=== PATIENT | male | born 1960 | race American Indian/Alaskan Native ===

== ENCOUNTER 2018-04-10 04:40 | Emergency (ER) | payer OTHER, SELFPAY ==
[2018-04-10] MEDS ORDERED: MOTRIN PO ONE (05:15)
--- NOTE | 2018-04-10 06:24 | XRay Report ---
FINAL REPORT PROCEDURE: XR RIBS UNILAT 2V RT TECHNIQUE: Unilateral rib radiographs, 2 views of the RIGHT ribs. HISTORY: right rib pain COMPARISON: No prior studies are available for comparison. FINDINGS: Lungs: There is atelectasis at the right lung base. There is no pulmonary contusion, effusion or pneumothorax. Pleural space: Normal. Pneumothorax: None. Bony thorax/ribs: There is a fracture of right rib number 8. There are incidental bilateral cervical ribs. IMPRESSION: Fracture of right rib 8.
[2018-04-10] MEDS ORDERED: MORPHINE IV ONE (06:35)
[2018-04-10] MEDS ORDERED: NACL 0.9% 1000 ML 1,000 ML IV ONE (06:35)
[2018-04-10] MEDS ORDERED: ZOFRAN IV ONE (06:35)
--- NOTE | 2018-04-10 06:40 | Emergency Department Report ---
ED Fall HPI - General Chief Complaint: Fall Stated Complaint: FALL; RT FLANK PAIN Time Seen by Provider: 04/10/18 06:30 Source: patient Mode of arrival: Ambulatory - History of Present Illness Initial Comments: Patient is 58 years old male with history of hypertension, COPD and alcoholism. Patient stated that he was trying to get out of his bathtub when he slipped and fell on his right chest. Patient presented to the ER complaining of right sided chest pain. Patient denied any shortness of breath but stated that pain increase when he take a deep breath. Initial oxygen saturation was 84%. MD Complaint: fall -: Sudden, Last night Fall From: standing When Fall Occurred: just prior to arrival Fall Witnessed: yes, by family Place Fall Occurred: home Loss of Consciousness: none Prolonged Down Time?: no Symptoms Prior to Fall: none Location: chest Severity scale (0 -10): 8 Context: tripped/slipped Associated Symptoms: denies - Related Data Previous Rx's Medication Instructions Recorded Last Taken Type ALBUTEROL Inhaler (OR & NICU) 2 puff IH QID PRN #1 inhalation 10/26/14 Unknown Rx [ProAir HFA Inhaler] Aspirin [Aspirin BABY CHEW TAB] 81 mg PO QDAY #30 tab.chew 10/26/14 Unknown Rx Lansoprazole Solutab [Prevacid 30 mg PO QDAY #30 tab.rapdis 10/26/14 Unknown Rx Solutab] Multivit, Iron, Min #4, FA 1 each PO DAILY #30 tab.chew 10/26/14 Unknown Rx [Multichew Chewable Tablet] Nicotine [Habitrol] 21 mg TD DAILY #30 patch 10/26/14 Unknown Rx Allergies Allergy/AdvReac Type Severity Reaction Status Date / Time No Known Allergies Allergy Unverified 10/25/14 11:06 ED Review of Systems ROS: Stated complaint: FALL; RT FLANK PAIN Other details as noted in HPI Comment: All other systems reviewed and negative Constitutional: denies: chills, fever ENT: denies: epistaxis Respiratory: shortness of breath. denies: cough, orthopnea, SOB with exertion, SOB at rest, wheezing Cardiovascular: chest pain. denies: palpitations Gastrointestinal: denies: abdominal pain, nausea, vomiting, diarrhea, constipation, hematemesis, melena, hematochezia Musculoskeletal: denies: back pain Neurological: denies: headache, weakness, numbness, paresthesias, confusion, abnormal gait ED Past Medical Hx - Past Medical History Hx Hypertension: Yes Hx COPD: Yes Additional medical history: BPH - Surgical History Past Surgical History?: No - Social History Smoking Status: Current Every Day Smoker Substance Use Type: Alcohol - Medications Home Medications: Home Medications Medication Instructions Recorded Confirmed Last Taken Type ALBUTEROL Inhaler (OR & NICU) 2 puff IH QID PRN #1 inhalation 10/26/14 Unknown Rx [ProAir HFA Inhaler] Aspirin [Aspirin BABY CHEW TAB] 81 mg PO QDAY #30 tab.chew 10/26/14 Unknown Rx Lansoprazole Solutab [Prevacid 30 mg PO QDAY #30 tab.rapdis 10/26/14 Unknown Rx Solutab] Multivit, Iron, Min #4, FA 1 each PO DAILY #30 tab.chew 10/26/14 Unknown Rx [Multichew Chewable Tablet] Nicotine [Habitrol] 21 mg TD DAILY #30 patch 10/26/14 Unknown Rx ED Physical Exam - General Limitations: No Limitations General appearance: alert, in distress (moderate distress secondary to pain) - Head Head exam: Present: atraumatic, normocephalic, normal inspection - Eye Eye exam: Present: normal appearance, PERRL, EOMI - ENT ENT exam: Present: normal exam, normal orophraynx, mucous membranes moist - Neck Neck exam: Present: normal inspection, full ROM. Absent: tenderness, meningismus, lymphadenopathy, thyromegaly - Respiratory Respiratory exam: Present: normal lung sounds bilaterally, chest wall tenderness. Absent: respiratory distress, wheezes, rales, rhonchi, stridor, accessory muscle use, decreased breath sounds, prolonged expiratory - Cardiovascular Cardiovascular Exam: Present: regular rate, normal rhythm, normal heart sounds - GI/Abdominal GI/Abdominal exam: Present: soft, normal bowel sounds. Absent: distended, tenderness, guarding, rebound, rigid, organomegaly, mass, bruit, pulsatile mass , hernia - Extremities Exam Extremities exam: Present: normal inspection, full ROM, normal capillary refill - Back Exam Back exam: Present: normal inspection, full ROM. Absent: tenderness, CVA tenderness (R), CVA tenderness (L), muscle spasm, paraspinal tenderness, vertebral tenderness, rash noted - Neurological Exam Neurological exam: Present: alert, oriented X3, CN II-XII intact, normal gait, reflexes normal - Skin Skin exam: Present: warm, intact, normal color ED Course Vital Signs 04/10/18 04/10/18 04/10/18 04:57 05:57 06:24 Temperature 98 F 98.1 F Pulse Rate 65 70 Respiratory 20 20 20 Rate Blood Pressure 92/54 Blood Pressure 118/81 [Left] O2 Sat by Pulse 100 92 Oximetry 04/10/18 04/10/18 04/10/18 06:52 06:57 07:22 Temperature Pulse Rate Respiratory 20 16 16 Rate Blood Pressure Blood Pressure [Left] O2 Sat by Pulse Oximetry - Reevaluation(s) Reevaluation #1: 04/10/18 09:18 Patient stated that he is feeling much better. He is eating his breakfast in no acute distress. ED Medical Decision Making - Lab Data Result diagrams: 04/10/18 06:13 04/10/18 06:13 - Radiology Data Radiology results: report reviewed Referring Physician: DEA LARIOS Patient Name: ISAURA SALEH Date of : 1960 Sex: Male Report Date: 2018-04-10 Report Status: Finalized Findings [facility] [address] [place] [address] Cat Scan Report Signed Patient: ISAURA SALEH MR#: [id number] : 1960 Acct:[id number] Age/Sex: 58 / M ADM Date: 04/10/18 Loc: ED Attending Dr: Ordering Physician: DEA LARIOS Date of Service: 04/10/18 Procedure(s): CT head/brain wo con Accession Number(s): [id number] cc: DEA LARIOS FINAL REPORT PROCEDURE: CT HEAD/BRAIN WO CON TECHNIQUE: Computerized tomography of the head was performed without contrast material. HISTORY: Fall/ head injury COMPARISON: No prior studies are available for comparison. FINDINGS: Skull and scalp: Normal. Paranasal sinuses: Normal. Ventricles and subarachnoid spaces: Normal. Cerebrum: No evidence of hemorrhage, acute infarction or mass . Cerebellum and brainstem: No evidence of hemorrhage, acute infarction or mass. Vasculature: Normal. Comments: None. IMPRESSION: Normal Examination Transcribed By: [place] Dictated By: YASSINE SEO MD Electronically Authenticated By: YASSINE SEO MD Signed Date/Time: 04/10/18734 DD/ 4 TD/TT: 04/10/18734 - Medical Decision Making Patient is 58 years old male with history of hypertension, COPD and alcoholism. Patient stated that he was trying to get out of his bathtub when he slipped and fell on his right chest. Patient presented to the ER complaining of right sided chest pain. Patient denied any shortness of breath but stated that pain increase when he take a deep breath. Initial oxygen saturation was 84%. Patient receive seen and his conjunctiva, morphine IV. CT head is negative for acute finding. Patient had a right eighth rib fracture was no evidence of pneumothorax on chest x-ray. No evidence of lung contusion. Patient improved significantly with IV morphine and his oxygen saturation is up to 97% on room air. I advised patient to follow with his primary care physician in the next 2- 3 days. I provided the patient with spirometer to expand his lungs to prevent atelectasis and pneumonia. I also provide patient with Percocet for pain. Critical Care Time: Yes Critical care time in (mins) excluding proc time.: 30 Critical care attestation.: If time is entered above; I have spent that time in minutes in the direct care of this critically ill patient, excluding procedure time. ED Disposition Clinical Impression: Head injury, Rib fracture, Fall, Hypoxia Disposition: DC-01 TO HOME OR SELFCARE Is pt being admited?: No Condition: Stable Instructions: Rib Fracture (ED), Minor Head Injury (ED), Hypoxia (ED) Referrals: PRIMARY CARE, [Primary Care Provider] - 3-5 Days
[2018-04-10 06:41] LABS: Basophils % (Auto) 0.5 % (0.0-1.8); Eosinophils % (Auto) 0.2 % (0.0-4.3); Hematocrit 57.2 % (35.5-45.6); Hemoglobin 19.2 gm/dl (11.8-15.2); Lymphocytes # (Auto) 1.1 K/mm3 (1.2-5.4); Lymphocytes % (Auto) 16.4 % (13.4-35.0); Mean Corpuscular HGB Conc 34 % (32-34); Mean Corpuscular Hemoglobin 34 pg (28-32); Mean Corpuscular Volume 103 fl (84-94); Monocytes # (Auto) 0.8 K/mm3 (0.0-0.8); Monocytes % (Auto) 10.9 % (0.0-7.3); Red Blood Count 5.58 M/mm3 (3.65-5.03); Red Cell Distribution Width 14.5 % (13.2-15.2)
[2018-04-10 06:54] LABS: Platelet Count 160 K/mm3 (140-440)
[2018-04-10 06:55] LABS: Alanine Aminotransferase 21 units/L (7-56); Albumin 4.3 g/dL (3.9-5); BUN/Creatinine Ratio 16; Blood Urea Nitrogen 18 mg/dL (9-20); Calcium 9.4 mg/dL (8.4-10.2); Hemolysis Index 9
--- NOTE | 2018-04-10 07:36 | Cat Scan Report ---
FINAL REPORT PROCEDURE: CT HEAD/BRAIN WO CON TECHNIQUE: Computerized tomography of the head was performed without contrast material. HISTORY: Fall/ head injury COMPARISON: No prior studies are available for comparison. FINDINGS: Skull and scalp: Normal. Paranasal sinuses: Normal. Ventricles and subarachnoid spaces: Normal. Cerebrum: No evidence of hemorrhage, acute infarction or mass . Cerebellum and brainstem: No evidence of hemorrhage, acute infarction or mass. Vasculature: Normal. Comments: None. IMPRESSION: Normal Examination
[2018-04-10 10:18] VITALS: BP 101/65
== END 2018-04-10 10:17 | disposition home or self-care (01) ==
LOC: ED 04:40
DX: S22.39XA Fracture of one rib, unspecified side, initial encounter for closed fracture (principal); S09.90XA Unspecified injury of head, initial encounter; I10 Essential (primary) hypertension; J44.9 Chronic obstructive pulmonary disease, unspecified; F17.200 Nicotine dependence, unspecified, uncomplicated; N40.0 Benign prostatic hyperplasia without lower urinary tract symptoms; W01.0XXA Fall on same level from slipping, tripping and stumbling without subsequent striking against object, initial encounter; Y93.89 Activity, other specified; Y92.89 Other specified places as the place of occurrence of the external cause; Y99.8 Other external cause status; R09.02 Hypoxemia
CPT/HCPCS: 36415; 70450; 71100; 80053; 85025; 96374; 96375; 99291; G0480; J2270; J2405; J7030; 80320

== ENCOUNTER 2021-05-28 10:02 | Day surgery (SDC) | payer BC, OTHER ==
[~2021-05-28 10:02] MED LIST: LACTATED RINGERS 1,000 ML IV SCH; MIDAZOLAM 2 MG/2 ML INJ IV NR; SODIUM CHLORIDE 0.9% IRR 1,500 ML BOTTLE IR ONE
[2021-05-28] MEDS ORDERED: HYDROmorphone 1 MG/1 ML INJ ONE (10:53)
[2021-05-28] MEDS ORDERED: LIDOCAINE MPF (2%) 20 MG/1 ML VIAL 5 ML ONE (10:53)
[2021-05-28] MEDS ORDERED: propofoL 200 MG/20 ML VIAL IV ONE (10:53)
[2021-05-28] MEDS ORDERED: ONDANSETRON 4 MG/2 ML INJ IV PRN (11:13)
[2021-05-28] MEDS ORDERED: HYDROcodone/ACETAMINOPHEN 5-325 MG TAB PO PRN (11:13)
[2021-05-28] MEDS ORDERED: HYDROmorphone 1 MG/1 ML INJ IV PRN (11:13)
--- NOTE | 2021-05-28 11:13 | Anesthesia Day of Surgery ---
Anesthesia Day of Surgery - Day of Surgery Patient Examined: Yes Patient H&P Reviewed: Yes Patient is NPO: Yes
--- NOTE | 2021-05-28 11:13 | Anesthesia Consultation ---
Anesthesia Consult and Med Hx Date of service: 05/28/21 - Airway Anesthetic Teeth Evaluation: Poor (multiple missing teeth, denies loose teeth) ROM Head & Neck: Adequate Mental/Hyoid Distance: Adequate Mallampati Class: Class III Intubation Access Assessment: Possibly Difficult - Pulmonary Exam CTA: Yes - Cardiac Exam Cardiac Exam: RRR - Pre-Operative Health Status ASA Pre-Surgery Classification: ASA3 Proposed Anesthetic Plan: General - Pulmonary Hx Smoking: Yes (1 PPD X 40 YRS; currently 1/2 PPD) Hx Respiratory Symptoms: No COPD: Yes (no inhaler use or hx exacerbations) Home Oxygen Therapy: No Hx Sleep Apnea: No (DI PRE SCREEN HIGH RISK) - Cardiovascular System Hx Hypertension: Yes Hx Heart Attack/AMI: No Hx Percutaneous Transluminal Coronary Angioplasty (PTCA): No Hx Cardia Arrhythmia: No - Central Nervous System CVA: No - Endocrine Hx Renal Disease: No Hx Liver Disease: No Hx Insulin Dependent Diabetes: No Hx Non-Insulin Dependent Diabetes: No Hx Thyroid Disease: No - Other Systems Hx Alcohol Use: Yes (prior hx EtOH abuse ) Hx Obesity: No - Additional Comments Anesthesia Medical History Comments: No hx anesthetic complications. Clubbing noted on exam. Room air SpO2 95%.
[2021-05-28] MEDS ORDERED: ceFAZolin/Water 2 GM/20 ML 2 GM/20 ML SYRINGE IV ONE (11:25)
[2021-05-28] MEDS ORDERED: ceFAZolin/STERILE WATER 2 GM/20 ML SYRINGE IV NR (12:00)
[2021-05-28] MEDS ORDERED: SODIUM CHLORIDE 0.9% IRR 1,500 ML BOTTLE IR ONE (13:19)
[2021-05-28] MEDS ORDERED: ONDANSETRON 4 MG/2 ML INJ ONE (13:22)
[2021-05-28 14:35] VITALS: BP 109/71
--- NOTE | 2021-05-28 14:59 | Operative Report ---
DATE OF SURGERY: 05/28/2021 PREOPERATIVE DIAGNOSES: Moderate left hydrocele, epididymal cyst and recurrent balanitis. POSTOPERATIVE DIAGNOSES: Moderate left hydrocele, epididymal cyst and recurrent balanitis. PROCEDURES: Left scrotal exploration, left hydrocelectomy and removal of epididymal cyst and circumcision. SURGEON: Dr. Rhodes. ANESTHESIA: General. FINDINGS: This is a gentleman with a prominent left hydrocele. He also has recurrent balanitis, wants the circumcision. DESCRIPTION OF PROCEDURE: The patient was brought to operating room and placed on the operating table. Following induction of anesthesia, placed in supine position, prepped and draped in usual sterile fashion. An oblique incision made over the left hemiscrotum and carried down to the tunica vaginalis. It was cleared from the surrounding fascia. At this point, the tunica was opened and approximately 60-80 mL of clear fluid was emptied. There was a cyst in the epididymis, which was dissected free from the surrounding vasculature and also removed with the appendix testis. Once this was removed, the tourniquet was oversewn and a bottleneck repair was done. The patient tolerated the procedure well. Wound was irrigated. A 0.5-inch [place] was placed in the dependent portion of the left hemiscrotum and secured with a silk. The fascia was approximated with 3-0 chromic, skin with interrupted sutures of 3-0 chromic. The patient tolerated the procedure well. At this point, the markings of the circumcision was carried out with a marking pencil and at this point, the circumferential incisions were made and connected dorsally. A large amount of excess skin was removed. Once the skin was removed, hemostasis was assured with a tie, mostly cautery. Sutures were placed at 12, 3, 6, and 9 o'clock position and each quadrant was bisected. Excellent closure was accomplished. The patient tolerated the procedure well. A loose dressing was applied. He was brought to recovery room in stable condition. Estimated blood loss less than 5 mL. TID: [id number] RECEIPT: [id number] ELIAN/TERA/SNOW
--- NOTE | 2021-05-28 15:17 | Post Operative Note ---
Date of procedure: 05/28/21 Pre-op diagnosis: balanitis left hydrocele cyst Post-op diagnosis: same Findings: same Procedure: hydrocelectomy circ excision cyst Anesthesia: GETA Surgeon: ANUSHA BARAHONA Estimated blood loss: minimal Pathology: list (sac skin) Specimen disposition: to lab Condition: stable Disposition: PACU
--- NOTE | 2021-05-28 15:18 | Discharge Summary ---
Short Stay Discharge Plan Activity: other (no straining ) Weight Bearing Status: Full Weight Bearing Diet: low fat, low cholesterol, low salt Wound: open to air Special Instructions: other (drain out ) Additional Instructions: MAY REMOVE BANDAGES TONIGHT RETURN TO OFFICE TOMORROW AT 1200 NOON MEDS SENT TO PHARMACY ICE PACK NEEDED Follow up with: SOPHIA CHARLTON MD [Primary Care Provider] - 7 Days ANUSHA BARAHONA MD [Staff Physician] - 7 Days Forms: Outpatient Surgery DC Inst.
--- NOTE | 2021-05-28 16:01 | Post Anesthesia Evaluation ---
- Post Anesthesia Evaluation Patient Participated: Yes Airway Patent: Yes Stable Respiratory Function: Yes Nausea/Vomiting: No Temp > 96.8F: Yes Pain Manageable: Yes Adequeate Hydration: Yes Anesthesia Complications: No
== END 2021-05-28 14:55 | disposition home or self-care (01) ==
LOC: OR 10:02
PROVIDERS: ATTEND Urology
DX: N43.3 Hydrocele, unspecified (principal); N48.1 Balanitis; N50.3 Cyst of epididymis; Z20.822 Contact with and (suspected) exposure to COVID-19; I10 Essential (primary) hypertension; J44.9 Chronic obstructive pulmonary disease, unspecified; F17.210 Nicotine dependence, cigarettes, uncomplicated; Z98.890 Other specified postprocedural states; Z79.899 Other long term (current) drug therapy
CPT/HCPCS: 54161; 54830; 55040; 88304; J0690; J1170; J2250; J2405; J2704; J7120; U0003; 88307